=== PATIENT | female | born 1980 | race Two or more races ===

== ENCOUNTER 2017-01-08 18:00 | Inpatient (IN) | payer BC ==
[~2017-01-08] VITALS: Ht 165.1 cm; Wt 76.6 kg
[2017-01-08 18:23] VITALS: Ht 165.1 cm; Wt 76.6 kg
[2017-01-08] MEDS ORDERED: LACTATED RINGER'S 1,000 ML IV PRN (18:30)
[2017-01-08] MEDS ORDERED: ACETAMINOPHEN/CODEINE #3 TAB PO PRN (18:30)
[2017-01-08] MEDS ORDERED: OXYTOCIN 30 UNITS/LR 500 ML IV PRN (18:30)
[2017-01-08] MEDS ORDERED: MISOPROSTOL 200 MCG TAB PR PRN (18:30)
[2017-01-08] MEDS ORDERED: OXYCODONE/ACETAMINOPHEN (5/325) TAB PO PRN (18:30)
[2017-01-08] MEDS ORDERED: LIDOCAINE 1% (MPF) 30 ML INJ INJ PRN (18:30)
[2017-01-08] MEDS ORDERED: OXYCODONE/ASPIRIN (4.88/325) TAB PO PRN (18:30)
[2017-01-08] MEDS ORDERED: BUTORPHANOL 2 MG INJ IV PRN (18:30)
[2017-01-08] MEDS ORDERED: IBUPROFEN 600 MG TAB PO PRN (18:30)
[2017-01-08] MEDS ORDERED: OXYTOCIN 30 UNITS/LR 500 ML IV SCH ×4 (18:30→20:30)
[2017-01-08] MEDS ORDERED: CARBOPROST 250 MCG INJ IM PRN (18:30)
[2017-01-08] MEDS ORDERED: METHYLERGONOVINE 0.2 MG INJ IM PRN (18:30)
[2017-01-08 18:32] VITALS: BP 124/82; PULSE 102; RESP 18
[2017-01-08] MEDS: LACTATED RINGER'S 1,000 ML IV SCH ×2 (20:11→23:16)
[2017-01-08 20:39] LABS: ADD SCAN DIFF NO
[2017-01-08 20:40] LABS: BASOPHILS % 0.1 % (0.0-2.0); EOSINOPHILS % 0.1 % (0.0-7.0); HEMATOCRIT 30.6 % (37.0-47.0); HEMOGLOBIN 10.2 g/dl (12.0-16.0); LYMPHOCYTES # 1.3 10^3/ul (0.8-2.9); LYMPHOCYTES % 17.8 % (15.0-51.0); MEAN CORPUSCULAR HEMOGLOBIN 30.3 pg (29.0-33.0); MEAN CORPUSCULAR HGB CONC 33.3 g/dl (32.0-37.0); MEAN CORPUSCULAR VOLUME 90.8 fl (82.0-101.0); MEAN PLATELET VOLUME 14.2 fl (7.4-10.4); MONOCYTE # 0.4 10^3/ul (0.3-0.9); MONOCYTES % 5.9 % (0.0-11.0); NEUTROPHIL # 5.4 10^3/ul (1.6-7.5); NEUTROPHILS % 75.7 % (39.0-77.0); PLATELET COUNT 106 10^3/UL (140-415); RED BLOOD COUNT 3.37 10^6/ul (4.20-5.40); RED CELL DISTRIBUTION WIDTH 12.7 % (11.5-14.5); WHITE BLOOD COUNT 7.1 10^3/ul (4.8-10.8)
[2017-01-08 20:53] LABS: INR 0.88; PROTIME 11.9 Sec (12.2-14.2); PT RATIO 0.9
[2017-01-08 20:54] LABS: PARTIAL THROMBOPLASTIN TIME 25.5 Sec (25.0-35.0)
--- NOTE | 2017-01-08 21:05 | HP ---
Date/Time of Note Date/Time of Note DATE: 01/08/17 TIME: 20:57 OB - History Hx of Present Free Text/Dictation 36y.o A1(sab)was admitted for induction of labor at term initial VE cervix 1cm 50% -2 with uc 2-3min apart which is still mild had unevenful course. Chief Complaint: for induction Last Menstrual Period: Apr 02, 2016 Estimated Due Date: Jan 08, 2017 : 5 Para: 3 Spontaneous : 1 Therapeutic : 0 Care: Good Care Ultrasounds: Normal mid trimester US Obstetrical Complications: None Medical Complications: None Past Family/Social History * Past Medical, Surgical, Family and Obstetric Histories reviewed from chart. Blood Type: A+ Rubella: immune RPR/VDRL: Negative GBS Status: Negative HBsAG: Negative OB Admission Exam Vital Signs Vital Signs Vital Signs Date Time Temp Pulse Resp B/P Pulse Ox O2 Delivery O2 Flow Rate FiO2 01/08/17 18:32 98.9 102 18 124/82 Room Air Physical Exam HEENT: WNL Heart: Rhythm Normal Lungs: Clear, Equal Abdomen: WNL Extremities: Normal Reflexes: Normal Cervical Dilatation: 1cm Effacement: 50% Station: -2 Membranes: Intact Amniotic Fluid: Unevaluable Heart Rate: 140's Accelerations: Accelerations Present Decelerations: No Decelerations Varibility: Moderate Contractions on Admission: < 5 Minutes Apart Intensity: Mild Last 72 hours Lab Results CBC & BMP 01/08/17 20:30 OB Assessment/Plan Reason for admission: induction of labor Other Assessment: IUP 40W Plan: Induction Induction Method: per Pitocin Protocol TAY BURRIS MD Jan 08, 2017 21:05
[2017-01-08] MEDS ORDERED: FENTAnyl 2MCG/ML-ROPIV 0.2% 100 ML ONE (23:53)
[2017-01-09] MEDS ORDERED: NALOXONE (0.4 MG/ML) INJ IV PRN (02:00)
[2017-01-09] MEDS ORDERED: FENTAnyl 2MCG/ML-ROPIV 0.2% 100 ML BAG EPI SCH (02:00)
[2017-01-09] MEDS: LACTATED RINGER'S 1,000 ML IV SCH ×2 (03:42→18:23)
--- NOTE | 2017-01-09 07:51 | PN ---
Date/Time of Note Date/Time of Note DATE: 01/09/17 TIME: 07:48 OB Subjective Subjective Subjective Comfortable with an epidural.Spontaneous rupture membranes,clear fluid. OB Objective Objective Objective Contractions are moderate every 3-4 minutes. FHR: category 1 HEENT: WNL Heart: Rhythm Normal Lungs: Clear Abdomen: WNL Extremities: Normal Reflexes: Normal Cervical Dilatation: 8cm Effacement: 100% Station: 0 Membranes: Ruptured Amniotic Fluid: Clear Heart Rate: 140's Accelerations: Accelerations Present Decelerations: No Decelerations Varibility: Moderate Contractions on Admission: < 5 Minutes Apart Intensity: Moderate TERRANCE GOLDEN MD Jan 09, 2017 07:50
[2017-01-09] MEDS: OXYTOCIN 30 UNITS/LR 500 ML IV SCH ×2 (08:55→12:55)
--- NOTE | 2017-01-09 08:58 | LDN ---
Date/Time of Note Date/Time of Note DATE: 01/09/17 TIME: 08:56 Delivery Summary Normal vaginal delivery baby girl Weeks of Gestation s core 8/9 No lacerations. Placenta Delivered: Spontaneously Meconium: none Episiotomy: No Estimated blood loss: 200 Sponge & Needle done & correct: Yes All needle counts correct: Yes Any foreign bodies felt in the: No Problems: TERRANCE GOLDEN MD Jan 09, 2017 08:58
[2017-01-09] MEDS ORDERED: CARBOPROST 250 MCG INJ IM PRN (09:00)
[2017-01-09] MEDS ORDERED: ACETAMINOPHEN/CODEINE #3 TAB PO PRN ×2 (09:00)
[2017-01-09] MEDS ORDERED: ACETAMINOPHEN 325 MG TAB PO PRN ×2 (09:00)
[2017-01-09] MEDS ORDERED: OXYTOCIN 30 UNITS/LR 500 ML IV PRN (09:00)
[2017-01-09] MEDS ORDERED: NA PHOSPHATE/BIPHOS 133 ML ENEMA PR PRN (09:00)
[2017-01-09] MEDS ORDERED: DIBUCAINE 1% 30 GM OINT PR PRN (09:00)
[2017-01-09] MEDS ORDERED: ONDANSETRON 4 MG INJ IV PRN (09:00)
[2017-01-09] MEDS: MAGNESIUM HYDROXIDE 30ML CUP PO SCH ×2 (09:00→22:05)
[2017-01-09] MEDS ORDERED: DIPHENHYDRAMINE 25 MG CAP PO PRN (09:00)
[2017-01-09] MEDS ORDERED: ONDANSETRON 4 MG TAB PO PRN (09:00)
[2017-01-09] MEDS ORDERED: MISOPROSTOL 200 MCG TAB PR PRN (09:00)
[2017-01-09] MEDS ORDERED: ZOLPIDEM 5 MG TAB PO PRN (09:00)
[2017-01-09] MEDS ORDERED: METHYLERGONOVINE 0.2 MG INJ IM PRN (09:00)
[2017-01-09] MEDS ORDERED: WITCH HAZEL/GLYCERIN PAD PR PRN (09:00)
[2017-01-09 11:30] VITALS: BP 125/81; PULSE 71; RESP 18
[2017-01-09] MEDS: IBUPROFEN 800 MG TAB PO SCH ×2 (12:00→17:43)
[2017-01-09] MEDS: BENZOCAINE 20% 56 ML SPRAY TOP PRN (12:36)
[2017-01-09 16:00] VITALS: BP 120/78; RESP 18
[2017-01-09 20:15] VITALS: BP 131/76; RESP 19
[2017-01-10 00:10] VITALS: BP 126/68; PULSE 66; RESP 18
[2017-01-10] MEDS: IBUPROFEN 800 MG TAB PO SCH ×4 (00:15→17:43)
[2017-01-10 03:55] VITALS: BP 118/78; PULSE 80; RESP 18
[2017-01-10 08:00] VITALS: BP 126/86; PULSE 74; RESP 18
--- NOTE | 2017-01-10 08:13 | PD.PPDC ---
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
--- NOTE | 2017-01-10 08:16 | DS ---
Date/Time of Note Date/Time of Note DATE: 01/10/17 TIME: 08:14 Obstetrical Discharge Record Final Diagnosis Final Diagnosis: Term delivered Vaginal Delivery Obstetrical Delivery: Spontaneous Condition on Discharge Physical Assessment Last Vitals: Stable.Afebrile,normal BP Voiding: Yes Bowel Movement: Yes Breast: Soft, non-tender Fundus: Firm Calf Tenderness: No Patient Condition: Good TERRANCE GOLDEN MD Jan 10, 2017 08:16
[2017-01-10] MEDS ORDERED: LANOLIN 7 GM TUBE TOP PRN (09:00)
[2017-01-10] MEDS: MAGNESIUM HYDROXIDE 30ML CUP PO SCH (09:00)
[2017-01-10 09:32] LABS: ADD SCAN DIFF NO
[2017-01-10 09:35] LABS: ABNORMAL IP MESSAGE 1; BASOPHILS % 0.3 % (0.0-2.0); EOSINOPHILS # 0.1 10^3/ul (0.0-0.5); EOSINOPHILS % 0.8 % (0.0-7.0); HEMATOCRIT 32.6 % (37.0-47.0); HEMOGLOBIN 10.4 g/dl (12.0-16.0); LYMPHOCYTES # 1.7 10^3/ul (0.8-2.9); LYMPHOCYTES % 26.1 % (15.0-51.0); MEAN CORPUSCULAR HEMOGLOBIN 29.9 pg (29.0-33.0); MEAN CORPUSCULAR HGB CONC 31.9 g/dl (32.0-37.0); MEAN CORPUSCULAR VOLUME 93.7 fl (82.0-101.0); MONOCYTE # 0.5 10^3/ul (0.3-0.9); MONOCYTES % 8.1 % (0.0-11.0); NEUTROPHIL # 4.2 10^3/ul (1.6-7.5); NEUTROPHILS % 64.4 % (39.0-77.0); PLATELET COUNT 83 10^3/UL (140-415); RED BLOOD COUNT 3.48 10^6/ul (4.20-5.40); RED CELL DISTRIBUTION WIDTH 13.1 % (11.5-14.5); WHITE BLOOD COUNT 6.5 10^3/ul (4.8-10.8)
[2017-01-10 15:36] VITALS: BP 120/82; PULSE 82; RESP 20
[2017-01-10] MEDS: BENZOCAINE 20% 56 ML SPRAY TOP PRN (17:29)
[2017-01-10 20:00] VITALS: BP 121/82; PULSE 76; RESP 19
[2017-01-11 04:00] VITALS: BP 135/96; PULSE 73; RESP 19
[2017-01-11] MEDS: IBUPROFEN 800 MG TAB PO SCH ×3 (06:00→12:40)
[2017-01-11 07:55] VITALS: BP 125/87; PULSE 65; RESP 20
[2017-01-11] MEDS: MAGNESIUM HYDROXIDE 30ML CUP PO SCH (09:00)
[2017-01-11] MEDS ORDERED: MEASLES,MUMPS,RUBELLA VACCINE INJ SC* ONE (09:00)
[2017-01-11] MEDS ORDERED: DIPHTH/TET/ACEL PERTUSS (ADULT) 0.5 ML VIAL IM* ONE (09:00)
[2017-01-11 15:30] VITALS: BP 117/71; PULSE 62; RESP 20
== END 2017-01-11 18:15 | disposition home or self-care (01) | DRG 775 ==
LOC: L-D 18:16 → PP1 01-09 11:18
PROVIDERS: ADMIT Specialist; ATTEND Specialist
PROC: 10E0XZZ Delivery of Products of Conception, External Approach (ICD-10-PCS; principal; 2017-01-09)
PROC: 3E033VJ Introduction of Other Hormone into Peripheral Vein, Percutaneous Approach (ICD-10-PCS; 2017-01-09)
DX: O48.0 Post-term pregnancy (principal); Z37.0 Single live birth; Z3A.40 40 weeks gestation of pregnancy
CPT/HCPCS: 62319; 85025; 85610; 85730; 86592; 86900; 86901; 87340; 90715; J2590; J3010; J7120